=== PATIENT | male | born 1980 | race Caucasian/White ===

== ENCOUNTER 2018-10-25 09:30 | Emergency (ER) | payer BC ==
[~2018-10-25] VITALS: Ht 188 cm; Wt 104.3 kg
== END 2018-10-25 11:13 | disposition home or self-care (01) ==
LOC: ED 09:30
DX: R06.02 Shortness of breath (principal); Z91.012 Allergy to eggs; Z88.4 Allergy status to anesthetic agent
CPT/HCPCS: 71046; 99284-25